=== PATIENT | female | born 1995 | race Two or more races ===

== ENCOUNTER → 2024-07-23 | Outpatient (CLI) | payer MEDICAID, SELFPAY ==
--- NOTE | 2024-07-23 11:00 | XR_ITS ---
Examination: Abdomen sonogram, complete Date and time of exam: July 23, 2024 1135 hours INDICATIONS: Epigastric pain beginning one year ago getting worse. Technique: Multiple real-time grayscale transabdominal sonographic images of the abdomen have been obtained. Findings: Gallbladder Normal common bile duct 0.2 cm Pancreatic head 3.0 cm Aorta not enlarged Liver 17.3 cm no focal liver lesions Normal hepatopedal portal venous flow Patent IVC Right kidney 11.4 cm cortex 2.0 cm Left kidney 10.6 cm cortex 2.1 cm Mild bilateral renal parenchymal scar formation Spleen 10.5 cm IMPRESSION: Normal gallbladder Mild hepatomegaly Mild bilateral renal parenchymal scar formation
== END | disposition home or self-care (01) ==
PROVIDERS: PCP Physician Assistant; Referring Provider Physician Assistant; Visit Provider Physician Assistant
DX: R16.0 Hepatomegaly, not elsewhere classified (principal); N28.89 Other specified disorders of kidney and ureter
CPT/HCPCS: 76700